=== PATIENT | male | born 1970 | race Caucasian/White ===

== ENCOUNTER 2017-09-11 15:56 | Emergency (ER) | payer BC ==
[~2017-09-11] VITALS: Ht 188 cm; Wt 118.0 kg
[~2017-09-11 15:56] MED LIST: ADVI200C9
[2017-09-11 15:58] VITALS: BP 145/95; PULSE 140; RESP 16; TEMP 99.4; O2SAT 98
--- NOTE | 2017-09-11 16:25 | PD ---
HPI Chief Complaint: Cold / Flu Symptoms Time Seen by Provider: 16:13 Travel History International Travel<30 days: No Contact w/Intl Traveler<30days: No Traveled to known affect area: No History of Present Illness HPI 47-year-old male came to the emergency room with history of cough, congestion and not feeling well for past 2 days. He's been taking [id number] NyQuil and DayQuil. Patient came to the triage and had a heart rate in the 120s. He also says he usually is very anxious coming to the doctor's office her hospital. Afebrile. Denies any chest pain. He says he has history of hypertension and takes 2 blood pressure medications but does not remember their name. Patient traveled recently and his symptoms started when he came back home. [facility] Past Medical History Narrative Medical List of his past medical, surgical, social and family history is reviewed from the nursing note. Diminished Hearing: No Social History Alcohol Use: Yes (X2 PER MONTH/2 BEER/LAST INTAKE YESTERDAY) Tobacco Use: Yes (1/2 PPD/STARTED AGE 20) Substance Use: No Allergies-Medications (Allergen,Severity, Reaction): Coded Allergies: No Known Allergies (Verified Allergy, Mild, 05/29/07) Comments No known drug allergies. Reported Meds & Prescriptions Reported Meds & Active Scripts Active Reported Advil (Ibuprofen) 200 Mg Cap Narrative Medication List of his home medications reviewed from the nursing note. Review of Systems Except as stated in HPI: all other systems reviewed are Neg Respiratory: Positive: Cough Physical Exam Narrative GENERAL: Awake, alert, obese, anxious, mild distress SKIN: Focused skin assessment warm/dry. HEAD: Atraumatic. Normocephalic. EYES: Pupils equal and round. No scleral icterus. No injection or drainage. ENT: No nasal bleeding or discharge. Mucous membranes pink and moist. NECK: Trachea midline. No JVD. CARDIOVASCULAR: Regular rate and rhythm. No murmur appreciated. RESPIRATORY: No accessory muscle use. Clear to auscultation. Breath sounds equal bilaterally. GASTROINTESTINAL: Abdomen soft, non-tender, nondistended. Hepatic and splenic margins not palpable. MUSCULOSKELETAL: No obvious deformities. No clubbing. No cyanosis. No edema. NEUROLOGICAL: Awake and alert. No obvious cranial nerve deficits. Motor grossly within normal limits. Normal speech. PSYCHIATRIC: Appropriate mood and affect; insight and judgment normal. Data Data Last Documented VS Vital Signs Date Time Temp Pulse Resp B/P (MAP) Pulse Ox O2 Delivery O2 Flow Rate FiO2 09/11/17 19:31 09/11/17 16:27 18 97 Room Air 09/11/17 15:58 99.4 140 Orders Orders Complete Blood Count With Diff (09/11/17 16:17) Basic Metabolic Panel (Bmp) (09/11/17 16:17) Influenzae A/B Antigen (09/11/17 16:17) [employer] / Telemetry ROBIN.Q8H (09/11/17 16:17) Chest, Single Ap (09/11/17 ) ^ Saline Lock (09/11/17 16:17) Electrocardiogram (09/11/17 ) D-Dimer (09/11/17 16:42) Sodium Chlor 0.9% 1000 Ml Inj (Ns 1000 M (09/11/17 16:45) Ed Discharge Order (09/11/17 19:18) Labs Laboratory Tests Test 09/11/17 16:30 09/11/17 16:45 White Blood Count 6.0 TH/MM3 Red Blood Count 5.03 MIL/MM3 Hemoglobin 15.4 GM/DL Hematocrit 44.5 % Mean Corpuscular Volume 88.4 FL Mean Corpuscular Hemoglobin 30.6 PG Mean Corpuscular Hemoglobin Concent 34.6 % Red Cell Distribution Width 13.1 % Platelet Count 218 TH/MM3 Mean Platelet Volume 7.7 FL Neutrophils (%) (Auto) 63.6 % Lymphocytes (%) (Auto) 10.8 % Monocytes (%) (Auto) 23.7 % Eosinophils (%) (Auto) 1.1 % Basophils (%) (Auto) 0.8 % Neutrophils # (Auto) 3.8 TH/MM3 Lymphocytes # (Auto) 0.6 TH/MM3 Monocytes # (Auto) 1.4 TH/MM3 Eosinophils # (Auto) 0.1 TH/MM3 Basophils # (Auto) 0.0 TH/MM3 CBC Comment DIFF FINAL Differential Comment Blood Urea Nitrogen 14 MG/DL Creatinine 1.43 MG/DL Random Glucose 117 MG/DL Calcium Level 8.8 MG/DL Sodium Level 137 MEQ/L Potassium Level 3.8 MEQ/L Chloride Level 103 MEQ/L Carbon Dioxide Level 27.3 MEQ/L Anion Gap 7 MEQ/L Estimat Glomerular Filtration Rate 53 ML/MIN D-Dimer Quantitative (PE/DVT) 0.59 MG/L FEU [facility] Medical Decision Making Medical Screen Exam Complete: Yes Emergency Medical Condition: Yes Medical Record Reviewed: Yes Interpretation(s) Twelve-lead EKG was reviewed by me. Normal sinus rhythm, normal axis, S1 every 3 T3, tachycardia. Heart rate of 126 bpm. Differential Diagnosis Viral illness, influenza, PE Narrative Course 4:23 PM awaiting for the blood test result and flu test. I've ordered a d- dimer as well. Case most probably will be signed over to the oncoming ER physician. Procedures EKG Prior to Arrival: Devorah Ovalle MD Sep 11, 2017 16:25
[2017-09-11] MEDS ORDERED: SODIUM CHLOR 0.9% 1000 ML INJ 1,000 ML IV ONE (16:45)
[2017-09-11 17:03] LABS: AUTOMATED NEUTROPHIL # 3.8 TH/MM3 (1.8-7.7); BASOPHIL % 0.8 % (0.0-2.0); EOSINOPHIL # 0.1 TH/MM3 (0-0.4); EOSINOPHIL % 1.1 % (0.0-4.0); HEMATOCRIT 44.5 % (39.0-51.0); HEMOGLOBIN 15.4 GM/DL (13.0-17.0); LYMPH % 10.8 % (9.0-44.0); LYMPHOCYTE # 0.6 TH/MM3 (1.0-4.8); MEAN CELL VOLUME 88.4 FL (80.0-100.0); MEAN CORPUSCULAR HEMOGLOBIN 30.6 PG (27.0-34.0); MEAN CORPUSCULAR HGB CONC 34.6 % (32.0-36.0); MEAN PLATELET VOLUME 7.7 FL (7.0-11.0); MONO % 23.7 % (0.0-8.0); MONOCYTE # 1.4 TH/MM3 (0-0.9); NEUT % 63.6 % (16.0-70.0); PLATELET COUNT 218 TH/MM3 (150-450); RED BLOOD COUNT 5.03 MIL/MM3 (4.50-5.90); RED CELL DISTRIBUTION WIDTH 13.1 % (11.6-17.2)
--- NOTE | 2017-09-11 17:09 | RADRPT ---
EXAM DATE/TIME: 09/11/2017 16:24 [place] COMPARISON: No previous studies available for comparison. INDICATIONS : Cough since Tuesday MEDICAL HISTORY : None. SURGICAL HISTORY : None. ENCOUNTER: Initial ACUITY: 1 day PAIN SCORE: 0/10 LOCATION: Bilateral chest FINDINGS: A single view of the chest demonstrates the lungs to be symmetrically aerated without evidence of mas s, infiltrate or effusion. The cardiomediastinal contours are unremarkable. Osseous structures are intact. CONCLUSION: 1. No acute cardiopulmonary disease. Doc Gil MD on September 11, 2017 at 17:07 Board Certified Radiologist. This report was verified electronically.
[2017-09-11 17:14] LABS: BICARBONATE 27.3 MEQ/L (21.0-32.0); CALCIUM 8.8 MG/DL (8.5-10.1); CREATININE 1.43 MG/DL (0.60-1.30)
--- NOTE | 2017-09-11 19:20 | PD ---
Data Data Last Documented VS Vital Signs Date Time Temp Pulse Resp B/P (MAP) Pulse Ox O2 Delivery O2 Flow Rate FiO2 09/11/17 16:27 18 97 Room Air 09/11/17 15:58 99.4 140 145/95 (112) Orders Orders Complete Blood Count With Diff (09/11/17 16:17) Basic Metabolic Panel (Bmp) (09/11/17 16:17) Influenzae A/B Antigen (09/11/17 16:17) Trial Judge / Telemetry ROBIN.Q8H (09/11/17 16:17) Chest, Single Ap (09/11/17 ) ^ Saline Lock (09/11/17 16:17) Electrocardiogram (09/11/17 ) D-Dimer (09/11/17 16:42) Sodium Chlor 0.9% 1000 Ml Inj (Ns 1000 M (09/11/17 16:45) Ed Discharge Order (09/11/17 19:18) Labs Laboratory Tests Test 09/11/17 16:30 09/11/17 16:45 White Blood Count 6.0 TH/MM3 Red Blood Count 5.03 MIL/MM3 Hemoglobin 15.4 GM/DL Hematocrit 44.5 % Mean Corpuscular Volume 88.4 FL Mean Corpuscular Hemoglobin 30.6 PG Mean Corpuscular Hemoglobin Concent 34.6 % Red Cell Distribution Width 13.1 % Platelet Count 218 TH/MM3 Mean Platelet Volume 7.7 FL Neutrophils (%) (Auto) 63.6 % Lymphocytes (%) (Auto) 10.8 % Monocytes (%) (Auto) 23.7 % Eosinophils (%) (Auto) 1.1 % Basophils (%) (Auto) 0.8 % Neutrophils # (Auto) 3.8 TH/MM3 Lymphocytes # (Auto) 0.6 TH/MM3 Monocytes # (Auto) 1.4 TH/MM3 Eosinophils # (Auto) 0.1 TH/MM3 Basophils # (Auto) 0.0 TH/MM3 CBC Comment DIFF FINAL Differential Comment Blood Urea Nitrogen 14 MG/DL Creatinine 1.43 MG/DL Random Glucose 117 MG/DL Calcium Level 8.8 MG/DL Sodium Level 137 MEQ/L Potassium Level 3.8 MEQ/L Chloride Level 103 MEQ/L Carbon Dioxide Level 27.3 MEQ/L Anion Gap 7 MEQ/L Estimat Glomerular Filtration Rate 53 ML/MIN D-Dimer Quantitative (PE/DVT) 0.59 MG/L FEU MDM Supervised Visit with ADAM: Yes Narrative Course 47-year-old man, here with cough cold symptoms. Initially seen by Dr. Monsivais. Feeling significantly improved now. Anxious to go. Dr. Pedraza was a history was a little bit unclear, given his tachycardia and his unclear history, d-dimer was ordered. D-dimer is mildly elevated. I went back in and reassessed the patient. Reevaluated his history. Patient relates definite infectious symptoms with cough cold and congestion. No chest pain. No trouble breathing. No leg pain or swelling. Only risk factor for PE is a recent car trip. No history of previous similar problems. Heart rate was 103 on my exam, patient looks well, anxious to be discharged. Discussed the abnormal lab tests , and the low but not 0 risk of PE, low weight against the risk of further imaging. At this point, the patient I are in agreement, we'll defer imaging for now. Return for any worsening symptoms. Recommend supportive treatment. Diagnosis Primary Impression: URI (upper respiratory infection) Additional Instruction: Take acetaminophen or ibuprofen as a for fever or body aches. You can return to work after you have had no fever for 24 hours. Drink plenty of fluids to stay well-hydrated. Follow-up with your primary doctor if you are not completely well in 7-10 days. Return to the emergency department for any worsening chest pain, trouble breathing, or any other new or worsening symptoms. Med/Other Pt SpecificInfo: No Change to Meds Disposition: 01 DISCHARGE HOME Condition: Stable Mitch Khan MD Sep 11, 2017 19:20
--- NOTE | 2017-09-12 18:14 | EKG ---
Date Performed: 09/11/2017 Time Performed: 16:20:15 PTAGE: 47 years EKG: SINUS TACHYCARDIA ABNORMAL RHYTHM ECG NO PREVIOUS TRACING DOCTOR: Melva Lozada Interpretating Date/Time 09/12/2017 18:12:36
== END 2017-09-11 19:36 | disposition home or self-care (01) ==
LOC: NEPD 15:56
DX: J06.9 Acute upper respiratory infection, unspecified (principal); R00.0 Tachycardia, unspecified; R94.31 Abnormal electrocardiogram [ECG] [EKG]; I10 Essential (primary) hypertension; F17.200 Nicotine dependence, unspecified, uncomplicated
CPT/HCPCS: 71045; 80048; 85025; 85379; 87804; 93005; 99285; J7030